=== PATIENT | male | born 1935 | race Caucasian/White ===

== ENCOUNTER 2017-04-12 16:11 | Emergency (ER) | payer MEDICARE, OTHER ==
[~2017-04-12 16:11] MED LIST: ASPIRIN81 MG PO; CELEXA20 MG PO; FLEXERIL10 M1 PO; FOLIC ACID1 MG PO; GABAPENTIN300 M2 PO; GABAPENTIN400 M2 PO; LIPITOR PO; LIPITOR40 MG; LIPITOR40 MG PO; LISINOPRIL2.5 MG PO; METFORMIN HCL500 M1 PO; NAPROSYN250 M1 PO; NEURONTIN100 MG PO; NEURONTIN600 MG PO; NEURONTIN800 MG PO; NEXIUM PO; NO MEDICATIONS; NORTRIPTYLINE H50 MG PO; ONGLYZA2.5 MG PO; OXAZEPAM PO; OXYCODON HCL-AP1 TA2 PO; OXYCODONE-ACET1 EAC1 PO; PAMELOR50 M1 PO; PANTOPRAZOLE SO40 MG PO; PAXIL PO; PERCOCET 10/31 UDTA1 PO; PERCOCET10 PO; PHENERGAN25 M1 PO; PRILOSEC40 MG PO; PROTONIX PO; REGLAN10 MG PO; RESTORIL7.5 MG DOB; TEMAZEPAM PO; ZESTRIL2.5 MG PO
[2017-04-12 16:50] LABS: URINE SOURCE CLEAN CATCH
[2017-04-12 16:52] LABS: URINE APPEARANCE CLEAR; URINE BLOOD NEG (NEG); URINE COLOR YELLOW; URINE GLUCOSE NEG (NORM); URINE LEUKOCYTE ESTERASE NEG (NEG); URINE NITRATE NEG (NEG); URINE PH 5.5 (5-8); URINE PROTEIN 1+ (NEG); URINE SPECIFIC GRAVITY >=1.030 (1.003-1.035); URINE UROBILINOGEN 0.2 MG/DL (NORM)
[2017-04-12 16:55] LABS: MICRO INDICATED? YES; URINE BILIRUBIN NEG (NEG); URINE KETONE 3+ (NEG)
[2017-04-12 17:09] LABS: CULTURE INDICATED? NO; URINE BACTERIA NEG (NEG); URINE RBC 0-2 /[HPF] (0-2); URINE WBC 0-2 /[HPF] (0-5)
== END 2017-04-12 17:50 | disposition home or self-care (01) ==
LOC: SED 16:11
PROVIDERS: Emergency Medicine
DX: N39.0 Urinary tract infection, site not specified (principal); R33.9 Retention of urine, unspecified; I10 Essential (primary) hypertension; K21.9 Gastro-esophageal reflux disease without esophagitis; F32.9 Major depressive disorder, single episode, unspecified; Z87.891 Personal history of nicotine dependence
CPT/HCPCS: 51702; 81003; 99283

== ENCOUNTER 2017-04-27 19:54 | Observation (INO) | payer MEDICARE, OTHER ==
[~2017-04-27] VITALS: Ht 190.5 cm; Wt 95.4 kg
--- NOTE | ~2017-04-27 | EKG ---
PATIENT: ADRIANA RUBIN UNIT #: [id number] Ventricular Rate: 47 BPM Atrial Rate: 47 BPM P-R Interval: 184 ms QRS Duration: 110 ms Q-T Interval: 474 ms QTC Calculation(Bezet): 419 ms P [place]: 20 degrees Calculated R [place]: -50 degrees Calculated T [place]: 42 degrees Diagnosis Line: Marked sinus bradycardia Diagnosis Line: Left anterior fascicular block Diagnosis Line: Abnormal ECG Diagnosis Line: When compared with ECG of 27-APR-2017 20:08, Diagnosis Line: (unconfirmed) Diagnosis Line: No significant change was found Diagnosis Line: Confirmed by JEREMY LENTZ MD ([id number]) on 04/29/2017 Diagnosis Line: 4:57:25 PM INTERPRETING MD: MARY CARMEN SEVILLA
--- NOTE | ~2017-04-27 | EKG ---
PATIENT: ADRIANA RUBIN UNIT #: [id number] Ventricular Rate: 48 BPM Atrial Rate: 48 BPM P-R Interval: 188 ms QRS Duration: 116 ms Q-T Interval: 486 ms QTC Calculation(Bezet): 434 ms P [place]: 47 degrees Calculated R [place]: -41 degrees Calculated T [place]: 18 degrees Diagnosis Line: Marked sinus bradycardia Diagnosis Line: Left axis deviation Diagnosis Line: Abnormal ECG Diagnosis Line: When compared with ECG of 28-APR-2017 10:32, Diagnosis Line: (unconfirmed) Diagnosis Line: No significant change was found Diagnosis Line: Confirmed by JEREMY LENTZ MD ([id number]) on 04/29/2017 Diagnosis Line: 5:15:25 PM INTERPRETING MD: MARY CARMEN SEVILLA
--- NOTE | ~2017-04-27 | HP ---
Unit #: [id number] #: [id number] Patient: ADRIANA RUBIN [id number] [facility]. [address] [place], [place] [address] [id number] MR#: [id number] NAME: ADRIANA RUBIN ROOM: 561 Age: 81 Sex: M Admission Date: 04/27/2017 : 1935 Attending Physician: Geneva Ugarte M.D. Primary Care Physician: Elisha Beltrán M.D. HISTORY AND PHYSICAL HISTORY OF PRESENT ILLNESS This is an 81-year-old male known to Dr. Ugarte with a prior history of hypertension, hyperlipidemia, type 2 diabetes mellitus, peptic ulcer disease, GERD and status post gastrectomy approximately four years ago. He had a negative stress test in 2013 and an echocardiogram in 2013 showed LVEF of 55% with grade one diastolic dysfunction and mild tricuspid regurg and pulmonic regurg. He presented to the ER per EMS with reports of mid sternal chest pain that occurred while lying in bed. He described it as sharp, painful chest pressure in his mid sternal area that lasted approximately 10 minutes. It was accompanied with some diaphoresis, shortness of breath and nausea. He denied any radiating pain to his neck or jaw. He denied palpitations. The pain went away in the ambulance with nitroglycerin sublingual. He is currently chest pain free. EKG in the ER shows sinus bradycardia with a probable high-degree AV block and a ventricular rate of 47 and nonspecific T wave abnormalities. His troponin is negative for ischemia x2. PAST MEDICAL HISTORY 1. Hypertension. 2. Hyperlipidemia. 3. Diabetes mellitus type 2. 4. Peptic ulcer disease. 5. GERD. 6. Status post gastrectomy approximately 40 years ago. 7. Stress test in 2013 negative for ischemia. 8. Echo in 2014 showed LVEF 55%, grade one diastolic dysfunction and mild TR and CA. 9. Remote history of tobacco abuse, quit approximately 40 years ago. 10. Degenerative joint disease. PAST SURGICAL HISTORY 1. Partial gastrectomy for ulcers greater than four years ago. 2. Colonoscopy/EGD. SOCIAL HISTORY He lives with his . He is not very active. He has a remote history of smoking. He quit about 40 years ago. He denies alcohol or illicit drug use. FAMILY HISTORY His mother during childbirth when he was an . He denies a family history of premature coronary artery disease. Unit #: [id number] #: [id number] Patient: ADRIANA RUBIN ALLERGIES No known drug allergies. HOME MEDICATIONS 1. Metformin 500 mg p.o. twice a day. 2. Oxycodone/acetaminophen 10/325 mg one p.o. every four hours as needed for pain. 3. Pantoprazole 40 mg p.o. daily. 4. Gabapentin 400 mg p.o. twice a day. REVIEW OF SYSTEMS A 10-point review of systems was conducted and the patient is a poor historian but it was otherwise negative except for what was stated in HPI. It is positive for weakness, chronic back pain, intermittent chest pain, diaphoresis, shortness of breath and nausea. PHYSICAL EXAMINATION GENERAL APPEARANCE: This is a pale, 81-year-old male resting in bed in no acute distress. VITAL SIGNS: Temp 98.8. Heart rate 57. Blood pressure 166/90. HEENT: Head is atraumatic and normocephalic. Pupils are equal and reactive to light. Mucous membranes are moist and intact. NECK: Supple. Trachea is midline. No JVD. LUNGS: Clear. Diminished in bases. Nonlabored respirations. CARDIOVASCULAR: S1, S2. Regular rate and rhythm. Bradycardia on exam. ABDOMEN: Soft, nontender, nondistended. Pulses are palpable. No pedal edema. NEUROLOGIC: Alert and oriented to person and placed. He moves all extremities equally and follows commands without difficulty. DIAGNOSTIC STUDIES LABORATORY: Sodium 142, potassium 4.1, chloride 108, BUN 18, creatinine 0.8, glucose 145. Hemoglobin 10.4, hematocrit 31.2, WBC count 5.5, platelets 199. Point of care troponin less than 0.05 and troponin less than 0.03. AST 22, ALT 16 and alkaline phosphatase 59. Lipid profile: Cholesterol 142, triglycerides 34, LDL 81 and HDL 54. TSH 0.90. IMAGING: Chest x-ray shows slightly hyperinflated lungs suggestive of emphysematous changes or deep inspiration. No acute findings. CARDIOVASCULAR: EKG reveals sinus bradycardia with a ventricular rate of 47 and type 2 AV block and nonspecific T wave abnormalities. ASSESSMENT 1. Chest pain, questionable angina pectoris. 2. Sinus bradycardia, rule out high-degree AV block. 3. Hypertension. 4. Hyperlipidemia. 5. Diabetes mellitus type 2. 6. GERD. PLAN 1. We would recommend cardiac cath. Plans for cardiac cath in the morning. 2. Check 2D echocardiogram. 3. CBC, BMP, troponin and EKG in the morning. 4. The patient is currently chest pain free. We will plan for a cardiac cath tomorrow. Risks and benefits discussed with patient and he is Unit #: [id number] #: [id number] Patient: ADRIANA RUBIN agreeable. Dictated by Shantelle Nava APRN for Mara Hall TD: 04/28/2017 13:53 JOB #: [id number] HISTORY AND PHYSICAL Page 1 of 1 X X HISTORY AND PHYSICAL
--- NOTE | ~2017-04-27 | EKG ---
PATIENT: ADRIANA RUBIN UNIT #: [id number] Ventricular Rate: 50 BPM Atrial Rate: 50 BPM P-R Interval: 190 ms QRS Duration: 116 ms Q-T Interval: 452 ms QTC Calculation(Bezet): 412 ms P [place]: 42 degrees Calculated R [place]: -53 degrees Calculated T [place]: 31 degrees Diagnosis Line: Sinus bradycardia Diagnosis Line: Left anterior fascicular block Diagnosis Line: Abnormal ECG Diagnosis Line: When compared with ECG of 28-APR-2017 06:53, Diagnosis Line: (unconfirmed) Diagnosis Line: No significant change was found Diagnosis Line: Confirmed by JEREMY LENTZ MD ([id number]) on 04/29/2017 Diagnosis Line: 5:02:35 PM INTERPRETING MD: MARY CARMEN SEVILLA
--- NOTE | ~2017-04-27 | CR72 ---
[facility] A Service of [facility] & [facility] / [facility] RADIOLOGY TEXT RESULTS PATIENT: ADRIANA RUBIN LOCATION: [facility] 561-01 : [birth year] UNIT #: [id number] AGE: [address]: Geneva Ugarte MD SEX: M ORDER DR: [id number] [facility] [address] [place], [place] [address] [id number] MR#: [id number] Acc #: [id number] NAME: ADRIANA RUBIN : 1935 SEX: M STUDY DATE/TIME: 04/27/2017 20:44 UNIT: [facility] ROOM: [facility] STUDY DESCRIPTION: CR Chest Single View Portable Attending Physician: Geneva Ugarte M.D. Ordering Physician: Noah Kyle M.D. Primary Care Physician: Elisha Beltrán M.D. MEDICAL IMAGING REPORT This report is preliminary unless electronic signature is present EXAM Single view of the chest dated 04/27/2017. COMPARISON Chest 2 views dated 10/08/2015. HISTORY Shortness of air, weakness and chest pain today. FINDINGS Single view of the chest was obtained. Lungs are slightly hyperinflated suggestive of emphysematous changes or deep inspiration. Correlate clinically. No superimposed patchy dense consolidation, pleural effusion or pneumothorax. Heart is of expected normal size. Dictated by... Kylah Morfin M.D. THIS IS AN ELECTRONICALLY VERIFIED REPORT Kylah Morfin M.D. at 04/28/2017 6:26 PM CPR/psc TD: 04/28/2017 02:53 JOB #: [id number] MEDICAL IMAGING REPORT Page 1 of 1 COPY
--- NOTE | ~2017-04-27 | EKG ---
PATIENT: ADRIANA RUBIN UNIT #: [id number] Ventricular Rate: 50 BPM Atrial Rate: 50 BPM P-R Interval: 166 ms QRS Duration: 122 ms Q-T Interval: 450 ms QTC Calculation(Bezet): 410 ms P [place]: -14 degrees Calculated R [place]: -57 degrees Calculated T [place]: 35 degrees Diagnosis Line: Sinus bradycardia Diagnosis Line: Left anterior fascicular block Diagnosis Line: Abnormal ECG Diagnosis Line: No previous ECGs available Diagnosis Line: Confirmed by JEREMY LENTZ MD ([id number]) on 04/29/2017 Diagnosis Line: 4:52:30 PM INTERPRETING MD: MARY CARMEN SEVILLA
[2017-04-27 20:39] LABS: POC - CKMB <1.0 ng/mL (0.0-7.9); POC - TROPONIN <0.05 ng/mL (<=0.05)
[2017-04-27 20:55] LABS: BASOPHIL# 0.1 X10e3 (0-0.3); EOSINOPHIL# 0.1 X10e3 (0-0.7); EOSINOPHIL% 2.6 % (0.0-7.0); HEMATOCRIT 31.2 % (38.0-50.0); HEMOGLOBIN 10.4 gm/dL (13.0-16.0); LYMPHOCYTE# 1.4 X10e3 (1.0-3.5); LYMPHOCYTE% 25.6 % (17.0-45.0); MEAN CELL VOLUME 98.3 FL (83-96); MEAN CORPUSCULAR HEMOGLOBIN 32.6 PG (28-34); MEAN CORPUSCULAR HGB CONC 33.2 g/dL (30-36); MEAN PLATELET VOLUME 9.3 FL (6.5-11.5); MONOCYTE# 0.4 X10e3 (0-1.0); MONOCYTE% 6.6 % (3.0-12.0); NEUTROPHIL# 3.5 X10e3 (1.5-7.1); NEUTROPHIL% 64.2 % (40-75); PLATELET COUNT 199 X10e3 (140-420); RED BLOOD COUNT 3.17 X10e (3.90-5.60); RED CELL DISTRIBUTION WIDTH 14.1 % (11.0-15.5); WHITE BLOOD COUNT 5.5 X10e3 (4.0-10.5)
[2017-04-27 20:57] LABS: DIFF IND NO
[2017-04-27 21:37] LABS: ALBUMIN SERUM 3.6 g/dL (3.5-5.0); BILIRUBIN, DIRECT 0.2 mg/dL (0.0-0.2); BILIRUBIN,INDIRECT 0.5 mg/dL (0.0-0.9); BILIRUBIN,TOTAL 0.7 mg/dL (0.2-2.0); BUN/CREATININE RATIO 22.5; CALCIUM SERUM 8.9 mg/dL (8.4-10.2); CREATININE SERUM 0.8 mg/dL (0.6-1.4); GLOM FILT RATE Estimated 82.6 mL/min (>60); MAGNESIUM 1.8 mg/dL (1.6-3.0); POTASSIUM 4.1 mmol/L (3.5-5.1); PROTEIN TOTAL SERUM 6.1 g/dL (6.0-8.3)
[2017-04-27 22:29] LABS: POC - CKMB <1.0 ng/mL (0.0-7.9); POC - TROPONIN <0.05 ng/mL (<=0.05)
[2017-04-28 07:53] LABS: CHOLESTEROL 142 mg/dL (0-200); HDL CHOLESTEROL 54 mg/dL (29-75); LDL CHOLESTEROL 81 mg/dL (-130); LDL/HDL RATIO 2 RATIO (0-4); TRIGLYCERIDES 34 mg/dL (10-160)
[2017-04-29 05:30] LABS: HEMATOCRIT 30.2 % (38.0-50.0); HEMOGLOBIN 10.1 gm/dL (13.0-16.0); MEAN CELL VOLUME 98.3 FL (83-96); MEAN CORPUSCULAR HEMOGLOBIN 32.7 PG (28-34); MEAN CORPUSCULAR HGB CONC 33.3 g/dL (30-36); MEAN PLATELET VOLUME 9.3 FL (6.5-11.5); RED BLOOD COUNT 3.07 X10e (3.90-5.60); RED CELL DISTRIBUTION WIDTH 13.7 % (11.0-15.5); WHITE BLOOD COUNT 4.5 X10e3 (4.0-10.5)
[2017-04-29 05:39] LABS: INR 1.1; PARTIAL THROMBOPLASTIN TIME 26.2 SECONDS (23.5-31.3); PROTHROMBIN TIME (PATIENT) 11.4 SECONDS (10.0-11.7)
[2017-04-29 06:14] LABS: BUN/CREATININE RATIO 21.25; CALCIUM SERUM 8.6 mg/dL (8.4-10.2); CREATININE SERUM 0.8 mg/dL (0.6-1.4); GLOM FILT RATE Estimated 82.6 mL/min (>60); POTASSIUM 3.9 mmol/L (3.5-5.1)
== END 2017-04-29 20:20 | disposition home or self-care (01) ==
LOC: CED 19:54 → CEDOF 21:50 → C5B 21:50
PROVIDERS: Emergency Medicine; Internal Medicine Cardiovascular Disease
DX: R07.9 Chest pain, unspecified (principal); R00.1 Bradycardia, unspecified; I10 Essential (primary) hypertension; E78.5 Hyperlipidemia, unspecified; E11.9 Type 2 diabetes mellitus without complications; K21.9 Gastro-esophageal reflux disease without esophagitis; Z87.11 Personal history of peptic ulcer disease; Z87.891 Personal history of nicotine dependence; Z79.84 Long term (current) use of oral hypoglycemic drugs; Z79.899 Other long term (current) drug therapy
CPT/HCPCS: 36415; 71010; 80048; 80061; 80076; 82553; 82947; 83735; 84443; 84484; 85025; 85027; 85610; 85730; 93005; 93306; 96372; 99152; 99153; 99285; C1769; C1887; C1894; G0378; J1644; J1650; J1815; J2250; J3010